=== PATIENT | female | born 1990 | race Two or more races ===

== ENCOUNTER → 2019-02-13 | Outpatient (CLI) | payer OTHER ==
[2019-02-13 09:51] LABS: ABSOLUTE EOSINOPHILS # (AUTO) 0.1 10^3/uL (0.0-0.6); ABSOLUTE LYMPHOCYTES (AUTO) 1.3 10^3/uL (0.5-4.7); ABSOLUTE MONOCYTES (AUTO) 0.3 10^3/uL (0.1-1.4); ABSOLUTE NEUT (AUTO) 2.1 10^3/uL (1.7-8.2); EOSINOPHILS % (AUTO) 1.6 % (0-6); HEMATOCRIT 32.2 % (36.0-47.0); HEMOGLOBIN 10.5 g/dL (12.0-15.5); LYMPHOCYTES % (AUTO) 34.1 % (13-45); MEAN CORPUSCULAR HEMOGLOBIN 26.4 pg (27.0-33.4); MEAN CORPUSCULAR HGB CONC 32.5 g/dL (32.0-36.0); MEAN CORPUSCULAR VOLUME 81 fl (80-97); MONOCYTES % (AUTO) 8.6 % (3-13); PLATELET COUNT 318 10^3/uL (150-450); RED BLOOD COUNT 3.97 10^6/uL (3.72-5.28); RED CELL DISTRIBUTION WIDTH 15.9 % (11.5-14.0); SEGMENTED NEUTROPHILS % (AUTO) 54.7 % (42-78); TOTAL CELLS COUNTED % (AUTO) 100 %; WHITE BLOOD COUNT 3.9 10^3/uL (4.0-10.5)
[2019-02-13 10:17] LABS: ALBUMIN 4.3 g/dL (3.5-5.0); ALKALINE PHOSPHATASE 72 U/L (38-126); ANION GAP 8 (5-19); ASPARTATE AMINO TRANSFERASE 18 U/L (14-36); BILIRUBIN,DIRECT 0.3 mg/dL (0.0-0.4); BILIRUBIN,TOTAL 0.7 mg/dL (0.2-1.3); BLOOD UREA NITROGEN 10 mg/dL (7-20); CALCIUM 9.5 mg/dL (8.4-10.2); CARBON DIOXIDE 24 mmol/L (22-30); CHLORIDE 108 mmol/L (98-107); GLUCOSE 84 mg/dL (75-110); IRON 26.5 ug/dL (37-170); POTASSIUM 4.1 mmol/L (3.6-5.0); TOTAL PROTEIN 7.5 g/dL (6.3-8.2)
[2019-02-13 10:52] LABS: FERRITIN 4.63 ng/mL (6.2-137.0)
== END ==
LOC: OD 08:54
PROVIDERS: ATTEND Family Medicine
DX: Z98.84 Bariatric surgery status (principal)
CPT/HCPCS: 36415; 80053; 82306; 82525; 82607; 82728; 83540; 84255; 84630; 85025

== ENCOUNTER → 2019-04-16 | Outpatient (CLI) | payer OTHER | LOC: OD 10:03 | PROVIDERS: ATTEND Family Medicine | DX: Z11.1 Encounter for screening for respiratory tuberculosis (principal) | CPT/HCPCS: 36415; 86480 ==

== ENCOUNTER → 2019-09-16 | Outpatient (CLI) | payer OTHER ==
--- NOTE | 2019-09-16 08:34 | WOMENS IMAGING REPORT ---
EXAM DESCRIPTION: U/S BREAST UNILAT LIMITED COMPLETED DATE/TIME: 09/16/2019 7:31 am REASON FOR STUDY: N64.4 MASTODYNIA (RIGHT); N64.4 MASTODYNIA (LEFT) N64.4 MASTODYNIA COMPARISON: None. TECHNIQUE: Real-time and static grayscale imaging performed of the right and left breast targeted to the area of clinical/mammographic concern. Selected color Doppler images recorded. LIMITATIONS: None. FINDINGS: MASS: No mass identified. Normal glandular tissue. OTHER: No other significant finding. IMPRESSION: No suspicious findings detected by ultrasound. BIRAD: Negative. RECOMMENDATION: RECOMMENDED FOLLOW-UP: Follow-up as clinically indicated. COMMENT: The [employer] ([employer]) has developed recommendations for screening MRI of the breasts in certain patient populations, to be used in conjunction with mammography. Breast MRI s urveillance may be appropriate for women with more than 20% lifetime risk of developing breast cancer as determined by genetic testing, significant family history of the disease, or history of mantle r adiation for Hodgkins Disease. ACR Practice Guidelines 2008. TECHNICAL DOCUMENTATION: JOB ID: [id number] 2010 [employer]- All Rights Reserved Reading location - IP/workstation name: [email or web address]
--- NOTE | 2019-09-16 08:34 | WOMENS IMAGING REPORT ---
EXAM DESCRIPTION: U/S BREAST UNILAT LIMITED COMPLETED DATE/TIME: 09/16/2019 7:31 am REASON FOR STUDY: N64.4 MASTODYNIA (RIGHT); N64.4 MASTODYNIA (LEFT) N64.4 MASTODYNIA COMPARISON: None. TECHNIQUE: Real-time and static grayscale imaging performed of the right and left breast targeted to the area of clinical/mammographic concern. Selected color Doppler images recorded. LIMITATIONS: None. FINDINGS: MASS: No mass identified. Normal glandular tissue. OTHER: No other significant finding. IMPRESSION: No suspicious findings detected by ultrasound. BIRAD: Negative. RECOMMENDATION: RECOMMENDED FOLLOW-UP: Follow-up as clinically indicated. COMMENT: The [employer] ([employer]) has developed recommendations for screening MRI of the breasts in certain patient populations, to be used in conjunction with mammography. Breast MRI s urveillance may be appropriate for women with more than 20% lifetime risk of developing breast cancer as determined by genetic testing, significant family history of the disease, or history of mantle r adiation for Hodgkins Disease. ACR Practice Guidelines 2008. TECHNICAL DOCUMENTATION: JOB ID: [id number] 2010 [employer]- All Rights Reserved Reading location - IP/workstation name: [email or web address]
== END ==
LOC: WI 07:00
PROVIDERS: ATTEND Family Medicine
DX: N64.4 Mastodynia (principal)
CPT/HCPCS: 76642

== ENCOUNTER 2020-03-11 19:15 | Emergency (ER) | payer OTHER ==
[2020-03-11] MEDS ORDERED: ACETAMINOPHEN 325 MG TABLET PO ONE (19:32)
[2020-03-11] MEDS ORDERED: ONDANSETRON 4 MG TAB.RAPDIS PO ONE (19:32)
--- NOTE | 2020-03-11 19:35 | ER Document Report ---
ED Medical Screen (RME) - General Chief Complaint: Abdominal Pain Stated Complaint: BACK AND ABDOMINALPAIN Time Seen by Provider: 03/11/20 19:22 Primary Care Provider: JOSE VARGAS MD [Primary Care Provider] - Follow up as needed Mode of Arrival: Ambulatory Information source: Patient Notes: 29-year-old female presents to ED for complaint of body aches lower ab dominal/pelvic pain pain to both hands and feet are numb and tingling. She states she also has urinary frequency urgency times a week. She states she has intermittent nausea with the medicine she was taking for urinary tract infection. She states her recently tested positive for gonorrhea so she went to the health department and they tested her for gonorrhea. She states that results will not be back for 2 weeks. I have ordered blood urine and swabs for wet mount and gonorrhea. She does have pelvic pain so she will need a pelvic exam. I have also ordered a pelvic ultrasound. I have greeted and performed a rapid initial assessment of this patient. A comprehensive ED assessment and evaluation of the patient, analysis of test results and completion of medical decision making process will be conducted by an additional ED providers. TRAVEL OUTSIDE OF THE [place] IN LAST 30 DAYS: No - Related Data Allergies/Adverse Reactions: No Known Allergies Allergy (Verified 09/29/12 23:15) Past Medical History Pulmonary Medical History: Reports: Hx Asthma Neurological Medical History: Reports: Hx Seizures GI Medical History: Reports: Hx Gastroesophageal Reflux Disease Skin Medical History: Reports Hx Cellulitis Past Surgical History: Reports: Hx Cholecystectomy - 2009 - Immunizations Immunizations up to date: Yes Hx Diphtheria, Pertussis, Tetanus Vaccination: Yes Physical Exam - Vital signs Vitals: Temp Pulse Resp BP Pulse Ox 101.6 F H 108 H 20 118/68 100 03/11/20 19:31 03/11/20 19:31 03/11/20 19:31 03/11/20 19:31 03/11/20 19:31 Course - Vital Signs Vital signs: Temp Pulse Resp BP Pulse Ox 101.6 F H 108 H 20 118/68 100 03/11/20 19:31 03/11/20 19:31 03/11/20 19:31 03/11/20 19:31 03/11/20 19:31 Doctor's Discharge - Discharge Referrals: VARGAS,SEQUIA A, MD [Primary Care Provider] - Follow up as needed
[2020-03-11 21:41] LABS: ABSOLUTE LYMPHOCYTES (AUTO) 1.1 10^3/uL (0.5-4.7); ABSOLUTE MONOCYTES (AUTO) 0.7 10^3/uL (0.1-1.4); ABSOLUTE NEUT (AUTO) 5.1 10^3/uL (1.7-8.2); BASOPHILS % (AUTO) 0.6 % (0-2); EOSINOPHILS % (AUTO) 0.3 % (0-6); HEMATOCRIT 31.8 % (36.0-47.0); HEMOGLOBIN 10.3 g/dL (12.0-15.5); LYMPHOCYTES % (AUTO) 15.9 % (13-45); MEAN CORPUSCULAR HEMOGLOBIN 24.9 pg (27.0-33.4); MEAN CORPUSCULAR HGB CONC 32.3 g/dL (32.0-36.0); MEAN CORPUSCULAR VOLUME 77 fl (80-97); MONOCYTES % (AUTO) 10.5 % (3-13); PLATELET COUNT 317 10^3/uL (150-450); RED BLOOD COUNT 4.12 10^6/uL (3.72-5.28); RED CELL DISTRIBUTION WIDTH 19.3 % (11.5-14.0); SEGMENTED NEUTROPHILS % (AUTO) 72.7 % (42-78); TOTAL CELLS COUNTED % (AUTO) 100 %
[2020-03-11 21:55] LABS: APPEARANCE,URINE CLOUDY; BILIRUBIN,URINE NEGATIVE (NEGATIVE); COLOR,URINE AMBER; GLUCOSE, URINE NEGATIVE (NEGATIVE); KETONES,URINE NEGATIVE (NEGATIVE); LEUKOCYTE ESTERASE,URINE LARGE (NEGATIVE); NITRITE,URINE POSITIVE (NEGATIVE); PROTEIN,URINE 100 mg/dL (NEGATIVE); URINE SPECIFIC GRAVITY 1.018
[2020-03-11 22:00] LABS: ALBUMIN 3.9 g/dL (3.5-5.0); ALKALINE PHOSPHATASE 94 U/L (38-126); ANION GAP 10 (5-19); ASPARTATE AMINO TRANSFERASE 31 U/L (14-36); BILIRUBIN,DIRECT 0.2 mg/dL (0.0-0.4); BILIRUBIN,TOTAL 0.6 mg/dL (0.2-1.3); BLOOD UREA NITROGEN 6 mg/dL (7-20); CALCIUM 9.1 mg/dL (8.4-10.2); CARBON DIOXIDE 19 mmol/L (22-30); CHLORIDE 109 mmol/L (98-107); GLUCOSE 96 mg/dL (75-110); POTASSIUM 3.7 mmol/L (3.6-5.0)
--- NOTE | 2020-03-11 22:22 | RADIOLOGY REPORT (SQ) ---
EXAM DESCRIPTION: US PELVIS TRANSVAGINAL COMPLETED DATE/TME: 03/11/2020 19:31 CLINICAL HISTORY: 29 years, Female, Lower abdominal/pelvic pain COMPARISON: None. TECHNIQUE: Emergent pelvic ultrasound LIMITATIONS: None. FINDINGS: The uterus measures 8.6 x 4.7 x 3.8 cm. Endometrium measures 3 mm in thickness. Myometrium is homogenous. The right ovary measures 6 x 4 x 4 cm, the left 2 x 2 by 2 cm. Doppler and spectral analysis with color flow shows arterial and venous flow to each ovary. There is a 5.3 x 3.9 x 3.6 cm right ovarian cyst. This has a peripheral septation and internal low-level echoes. No solid adnexal mass. Trace of free fluid. IMPRESSION: Slightly complex right ovarian cyst likely reflects hemorrhagic cyst. Recommend follow-up in 6-12 weeks, as per below. Recommendations for f/u of ovarian complex cysts (1): Endometrioma: <= 7 cm: US f/u 6-12 wks. If not surgically resected, US f/u annually. >7 cm: Consider MR w/IVC or surgical evaluation. If not surgically resected, US f/u annually. Dermoid: <= 5 cm: MR w/IV contrast. If not surgically resected, US f/u annually. >5 cm: Surgical evaluation. If not surgically resected, MR w/IVC; then US f/u annually Indeterminate cyst - multiple thin <=3 mm septations: Any size in any age: Consider surgical evaluation. Indeterminate cyst - non-hyperechoic nodule w/o blood flow: Any size in any age: Consider MR w/IVC or surgical evaluation. Indeterminate cyst - other, not classic for but suggestive of hemorrhagic cyst, endometrioma or dermoid: Pre-menopause: <= 7 cm: US f/u 6-12 weeks. If unchanged, continue f/u with US or consider MR w/IVC. If these do not confirm endometrioma or dermoid, consider surgical evaluation. >7 cm: Consider MR w/IVC or surgical evaluation. Post-menopause (>=1 year from last menstrual period): Any size: Consider surgical evaluation. Cyst worrisome for malignancy (thick, irregular >=3 mm septations or nodule with blood flow): Any size in any age: Consider surgical evaluation. (1) Recommendations based upon the 2010 SRU Consensus Conference Statement on the Management of Asymptomatic Ovarian and Other Adnexal Cysts Imaged at US: Radiology. 2009;256(3):373-36 copyright 2011 [employer]- All Rights Reserved
[2020-03-11] MEDS ORDERED: KETOROLAC TROMETHAMINE INJ/PF 30 MG/1 ML SDV IV ONE (22:27)
[2020-03-11] MEDS ORDERED: NORMAL SALINE 1000 ML 1,000 ML IV ONE (22:27)
--- NOTE | 2020-03-11 22:32 | ER Document Report ---
ED GI/ - General Chief Complaint: Abdominal Pain Stated Complaint: BACK AND ABDOMINALPAIN Time Seen by Provider: 03/11/20 19:22 Primary Care Provider: JOSE VARGAS MD [Primary Care Provider] - Follow up as needed JESSICA CLAIRE MD [ACTIVE STAFF] - Follow up in 3-5 days Mode of Arrival: Ambulatory TRAVEL OUTSIDE OF THE [place] IN LAST 30 DAYS: No - HPI Patient complains to provider of: Pelvic pain. No: Abdominal pain, Diarrhea, Hematuria, , Vaginal bleeding, Vaginal discharge Onset: Other - Several days Timing/Duration: Gradual Quality of pain: Pressure Context: denies: Bad food, Lifting, Location: Pelvis. No: Chest pain Vaginal bleeding (Compared to normal period): None Notes: 03/11/20 22:44 Patient is a 29-year-old female who presents with right flank pain and pelvic pressure. Patient states it has been present for several days. She has not b een febrile at home. She denies any chills. Patient denies dysuria or hematuria. She denies any vaginal discharge. Patient went to the health department today to get tested for STDs as her was diagnosed with gonorrhea last week. Patient is denying any vaginal discharge. She states that they did a pelvic exam and did not see any significant discharge. Patient does not want another pelvic exam today in the ER. Patient has been taking Azo for the urinary pressure as she has had UTIs before. She is not currently on any antibiotics. - Related Data Allergies/Adverse Reactions: No Known Allergies Allergy (Verified 09/29/12 23:15) Past Medical History - General Information source: Patient - Social History Smoking Status: Never Smoker Family History: Reviewed & Not Pertinent Pulmonary Medical History: Reports: Hx Asthma Neurological Medical History: Reports: Hx Seizures GI Medical History: Reports: Hx Gastroesophageal Reflux Disease Skin Medical History: Reports Hx Cellulitis Past Surgical History: Reports: Hx Cholecystectomy - 2010 - Immunizations Immunizations up to date: Yes Hx Diphtheria, Pertussis, Tetanus Vaccination: Yes Review of Systems - Review of Systems Notes: CONSTITUTIONAL: No fever, fatigue or weight loss. SKIN: No rash. HENT: No congestion, ear pain, or sore throat. EYES: No recent vision problems or eye pain. ENDOCRINE: No polyuria or polydipsia. CARDIOVASCULAR: No chest pain or edema. RESPIRATORY: No cough, shortness of breath, congestion, or wheezing. GASTROINTESTINAL: Mild nausea. Lower abdominal suprapubic discomfort. GENITOURINARY: No dysuria. Positive for urinary pressure. MUSCULOSKELETAL: No joint pain or swelling. Right flank discomfort. NEUROLOGIC: No seizures. No headache, focal weakness or sensory changes. HEMATOLOGIC: No unusual bruising or bleeding. PSYCHIATRIC: No depression or anxiety. Physical Exam - Vital signs Vitals: Temp Pulse Resp BP Pulse Ox 101.6 F H 108 H 20 118/68 100 03/11/20 19:31 03/11/20 19:31 03/11/20 19:31 03/11/20 19:31 03/11/20 19:31 Interpretation: Febrile - Notes Notes: VITAL SIGNS: Febrile GENERAL: No acute distress, non-toxic appearance. HEAD: Normal with no signs of head trauma. EYES: EOMI, conjunctiva normal, no discharge. EARS: Hearing grossly intact. NOSE: Normal. NECK: Normal range of motion, no tenderness, supple, no lymphadenopathy, No adenopathy, no JVD. CHEST: Clear breath sounds bilaterally. No wheezes, rales, or rhonchi. CARDIAC: Regular rate and rhythm. S1 and S2, without murmurs, gallops, or rubs. VASCULAR: No Edema. ABDOMEN: Normal and soft with no tenderness GENITOURINARY: Discomfort to suprapubic palpation. LYMPATHTIC: No lymphadenopathy noted. MUSCULOSKELETAL: Good range of motion of all major joints. Extremities without clubbing, cyanosis or edema. Discomfort to palpation of right flank. No rashes. NEUROLOGICAL: Alert and oriented x 3. No focal sensory or strength deficits. Speech normal. Follows commands appropriately. PSYCHIATRIC: Normal Affect, judgement and mood. SKIN: Normal appearance with no rashes or lesions. Course - Re-evaluation Re-evalutation: 03/12/20 02:41 Patient did have a fever initially. This has resolved. She appears well on exam. Ultrasound shows an ovarian cyst on the right. I did discuss this with her. She will need to follow-up with OB for repeat ultrasound in approximately 6 weeks. She was given the number for OB. I obtained a CT scan to rule out a kidney stone as she had some right flank pain and this was negative. Patient's urine is suspicious for UTI. I did order blood cultures and urine cultures. We will treat with Rocephin. Patient states she has had a UTI in the past and this feels very similar. Patient does mention that her had gonorrhea diagnosed recently. She did go to the health department today to get tested but was not aware of her 's positive diagnosis until later after the appointment. Patient had a pelvic exam done there and she stated there was no discharge. Patient has not yet been treated for this. She does not want a pelvic exam in the ER today and she does not want repeat STD testing as she just had that done. I believe that her symptoms are likely from a UTI and possible pyelonephritis rather than PID as she has positive nitrite in her urine. She a lso states that she has had this pain before with previous UTIs. I did offer treatment for STDs and she agreed. Patient was also given azithromycin and Flagyl in addition to the rocephin. She will be sent home with Keflex for the UTI. Patient was given strict return precautions including fevers, chills, vomiting, any other symptoms. She was instructed to follow-up with her OB for reevaluation as well as the ultrasound in 6 weeks to evaluate the cyst. Patient was very agreeable to the plan for follow-up and will return for any concerning symptoms. - Vital Signs Vital signs: Temp Pulse Resp BP Pulse Ox 98.8 F 89 20 114/59 L 100 03/12/20 01:53 03/12/20 01:53 03/12/20 01:53 03/12/20 00:48 03/12/20 01:53 - Laboratory Result Diagrams: 03/11/20 21:31 03/11/20 21:31 Laboratory results interpreted by me: 03/11/20 03/11/20 03/11/20 21:31 21:31 21:40 Hgb 10.3 L Hct 31.8 L MCV 77 L MCH 24.9 L RDW 19.3 H Chloride 109 H Carbon Dioxide 19 L BUN 6 L Urine Protein 100 H Urine Blood SMALL H Urine Nitrite POSITIVE H Urine Urobilinogen 2.0 H Ur Leukocyte Esterase LARGE H Discharge - Discharge Clinical Impression: Pyelonephritis Urinary tract infection Qualifiers: Urinary tract infection type: site unspecified Hematuria presence: without hematuria Qualified Code(s): N39.0 - Urinary tract infection, site not specified Ovarian cyst Qualifiers: Laterality: right Qualified Code(s): N83.201 - Unspecified ovarian cyst, right side Condition: Stable Disposition: HOME, SELF-CARE Instructions: Abdominal Pain ([facility]), Pyelonephritis ([facility]), Urinary Tract Infection ([facility]) Additional Instructions: Please follow-up with your family doctor. You must also follow-up with OBGYN. I provided the number for them. It is recommended that you get a repeat ultrasound of the ovarian cyst. Please return to the ED for any fevers, pain, nausea, vomiting. Prescriptions: Cephalexin Monohydrate [Keflex 500 mg Capsule] 500 mg PO BID #14 capsule Ondansetron [Zofran Odt 4 mg Tablet] 4 mg PO Q6H #10 tab.rapdis Referrals: JOSE VARGAS MD [Primary Care Provider] - Follow up as needed JESSICA CLAIRE MD [ACTIVE STAFF] - Follow up in 3-5 days
[2020-03-11] MEDS ORDERED: CEFTRIAXONE 1 GM/D5W RTU 1 GM/50 ML RTUPB IV ONE (22:50)
--- NOTE | 2020-03-11 23:45 | RADIOLOGY REPORT (SQ) ---
EXAM DESCRIPTION: CT ABDOMEN PELVIS WITHOUT IV CONTRAST COMPLETED DATE/TME: 03/11/2020 22:26 CLINICAL HISTORY: 29 years Female flank pain right sided COMPARISON: None. TECHNIQUE: Contiguous axial images obtained through the abdomen and pelvis without IV contrast. Reformatted images obtained. This exam was performed according to our department optimization program which includes automated exposure control, adjustment of the mA and/or kv according to patient size and/or use of iterative reconstruction technique. FINDINGS: The lung bases are clear. The liver appears unremarkable. The spleen and pancreas appear unremarkable. No adrenal masses. The kidneys appear unremarkable. No hydronephrosis or definite ureteral calculi. The gallbladder is absent. No aneurysmal dilatation of the aorta. No bowel obstruction. Unremarkable appendix. Hemorrhagic appearing right ovarian cyst measuring 3.8 x 3.9 cm. This was seen on ultrasound examination. Recommend follow-up ultrasound in 6-12 weeks. IMPRESSION: Hemorrhagic appearing right ovarian cyst measuring 3.8 x 3.9 cm. This has been evaluated on ultrasound earlier the same day. Please follow the recommendation based on the ultrasound appearance.
[2020-03-12 00:52] VITALS: BP 114/59
--- NOTE | 2020-03-12 02:57 | ER Document Report ---
ED GI/ - General Chief Complaint: Abdominal Pain Stated Complaint: BACK AND ABDOMINALPAIN Time Seen by Provider: 03/11/20 19:22 Primary Care Provider: JOSE VARGAS MD [Primary Care Provider] - Follow up as needed JESSICA CLAIRE MD [ACTIVE STAFF] - Follow up in 3-5 days Mode of Arrival: Ambulatory TRAVEL OUTSIDE OF THE [place] IN LAST 30 DAYS: No - Related Data Allergies/Adverse Reactions: No Known Allergies Allergy (Verified 09/29/12 23:15) Past Medical History - General Information source: Patient - Social History Smoking Status: Never Smoker Family History: Reviewed & Not Pertinent Pulmonary Medical History: Reports: Hx Asthma Neurological Medical History: Reports: Hx Seizures GI Medical History: Reports: Hx Gastroesophageal Reflux Disease Skin Medical History: Reports Hx Cellulitis Past Surgical History: Reports: Hx Cholecystectomy - 2009 - Immunizations Immunizations up to date: Yes Hx Diphtheria, Pertussis, Tetanus Vaccination: Yes Physical Exam - Vital signs Vitals: Temp Pulse Resp BP Pulse Ox 101.6 F H 108 H 20 118/68 100 03/11/20 19:31 03/11/20 19:31 03/11/20 19:31 03/11/20 19:31 03/11/20 19:31 Course - Vital Signs Vital signs: Temp Pulse Resp BP Pulse Ox 98.8 F 89 20 114/59 L 100 03/12/20 01:53 03/12/20 01:53 03/12/20 01:53 03/12/20 00:48 03/12/20 01:53 - Laboratory Result Diagrams: 03/11/20 21:31 03/11/20 21:31 Laboratory results interpreted by me: 03/11/20 03/11/20 03/11/20 21:31 21:31 21:40 Hgb 10.3 L Hct 31.8 L MCV 77 L MCH 24.9 L RDW 19.3 H Chloride 109 H Carbon Dioxide 19 L BUN 6 L Urine Protein 100 H Urine Blood SMALL H Urine Nitrite POSITIVE H Urine Urobilinogen 2.0 H Ur Leukocyte Esterase LARGE H Discharge - Discharge Clinical Impression: Pyelonephritis Urinary tract infection Qualifiers: Urinary tract infection type: site unspecified Hematuria presence: without hematuria Qualified Code(s): N39.0 - Urinary tract infection, site not specified Ovarian cyst Qualifiers: Laterality: right Qualified Code(s): N83.201 - Unspecified ovarian cyst, right side Condition: Stable Disposition: HOME, SELF-CARE Instructions: Abdominal Pain ([facility]), Pyelonephritis ([facility]), Urinary Tract Infection ([facility]) Additional Instructions: Please follow-up with your family doctor. You must also follow-up with OBGYN. I provided the number for them. It is recommended that you get a repeat ultrasound of the ovarian cyst. Please return to the ED for any fevers, pain, nausea, vomiting. Prescriptions: Azithromycin 1,000 mg PO ONCE PRN #2 tablet PRN Reason: Metronidazole [Flagyl 500 mg Tablet] 2,000 mg PO ONCE PRN #4 tablet PRN Reason: Cephalexin Monohydrate [Keflex 500 mg Capsule] 500 mg PO BID #14 capsule Ondansetron [Zofran Odt 4 mg Tablet] 4 mg PO Q6H #10 tab.rapdis Referrals: JOSE VARGAS MD [Primary Care Provider] - Follow up as needed JESSICA CLAIRE MD [ACTIVE STAFF] - Follow up in 3-5 days
--- NOTE | 2020-03-12 03:13 | ER Document Report ---
Doctor's Note Notes: 03/12/20 03:12 After patient was discharged, it was noted that she never received the azithromycin and flagyl. I did send this to her pharmacy.
== END 2020-03-12 01:55 | disposition home or self-care (01) ==
LOC: ER 19:15
DX: N12 Tubulo-interstitial nephritis, not specified as acute or chronic (principal); N39.0 Urinary tract infection, site not specified; N83.201 Unspecified ovarian cyst, right side; R10.9 Unspecified abdominal pain; R10.2 Pelvic and perineal pain; R11.0 Nausea; R50.9 Fever, unspecified; Z20.2 Contact with and (suspected) exposure to infections with a predominantly sexual mode of transmission; J45.909 Unspecified asthma, uncomplicated
CPT/HCPCS: 99285; 96375; 96365; 36415; 87086; 83690; 84703; 85025; 87088; 80053; 81001; 87186; 76830; 74176; J1885; J7030; J0696

== ENCOUNTER 2020-05-25 11:46 | Emergency (ER) | payer OTHER ==
[2020-05-25 11:52] VITALS: BP 109/68
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
== END 2020-05-25 13:01 | disposition home or self-care (01) ==
LOC: ER 11:46
DX: S16.1XXA Strain of muscle, fascia and tendon at neck level, initial encounter (principal); S29.012A Strain of muscle and tendon of back wall of thorax, initial encounter; V43.52XA Car driver injured in collision with other type car in traffic accident, initial encounter; J45.909 Unspecified asthma, uncomplicated; K21.9 Gastro-esophageal reflux disease without esophagitis; Z79.899 Other long term (current) drug therapy
CPT/HCPCS: 99283

== ENCOUNTER 2020-07-16 07:34 | Emergency (ER) | payer OTHER, MEDICAID ==
[2020-07-16 07:42] VITALS: BP 108/68
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
[2020-07-16 08:34] LABS: APPEARANCE,URINE CLEAR; BILIRUBIN,URINE NEGATIVE (NEGATIVE); COLOR,URINE YELLOW; GLUCOSE, URINE NEGATIVE (NEGATIVE); KETONES,URINE NEGATIVE (NEGATIVE); LEUKOCYTE ESTERASE,URINE NEGATIVE (NEGATIVE); NITRITE,URINE NEGATIVE (NEGATIVE); PROTEIN,URINE NEGATIVE (NEGATIVE); URINE SPECIFIC GRAVITY 1.023
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
== END 2020-07-16 10:08 | disposition home or self-care (01) ==
LOC: ER 07:34
DX: S29.019A Strain of muscle and tendon of unspecified wall of thorax, initial encounter (principal); M54.5 Low back pain; V89.2XXA Person injured in unspecified motor-vehicle accident, traffic, initial encounter
CPT/HCPCS: 72070; 72110; 81001; 81025; 99284